=== PATIENT | female | born 1970 | race Asian ===

== ENCOUNTER 2024-02-28 14:56 | Emergency (ER) | payer BC ==
[~2024-02-28] VITALS: Ht 157.5 cm; Wt 62.6 kg
[2024-02-28] MEDS: IV NS 0.9% 1,000 ML BAG IV ONE (15:22)
[2024-02-28 17:21] VITALS: BP 121/86; TEMP 98.6; O2SAT 98
== END 2024-02-28 16:30 | disposition left against medical advice (07) ==
LOC: ER 15:32
DX: S09.90XA Unspecified injury of head, initial encounter (principal); X58.XXXA Exposure to other specified factors, initial encounter; Y93.89 Activity, other specified; Y92.89 Other specified places as the place of occurrence of the external cause; Y99.8 Other external cause status
CPT/HCPCS: 99284; 70450; 93005; J7030; A4223